=== PATIENT | male | born 1945 | race Caucasian/White ===

== ENCOUNTER 2019-03-06 10:29 | Emergency (ER) | payer MEDICARE, OTHER ==
[2019-03-06 11:21] LABS: ADD MAN DIFF? NO
[2019-03-06 11:28] LABS: HEMOGLOBIN 13.3 g/dl (14.0-18.0); RED BLOOD COUNT 4.92 10^6/ul (4.70-6.10)
[2019-03-06 11:28] LABS: WHITE BLOOD COUNT 5.5 10^3/ul (4.8-10.8)
[2019-03-06 11:29] LABS: BASOPHILS % 0.7 % (0.0-2.0); EOSINOPHILS # 0.1 10^3/ul (0.0-0.5); EOSINOPHILS % 2.2 % (0.0-7.0); HEMATOCRIT 41.5 % (42.0-52.0); LYMPHOCYTES # 1.3 10^3/ul (0.8-2.9); LYMPHOCYTES % 23.2 % (15.0-51.0); MEAN CORPUSCULAR VOLUME 84.3 fl (82.0-101.0); MEAN PLATELET VOLUME 10.8 fl (7.4-10.4); MONOCYTE # 0.5 10^3/ul (0.3-0.9); MONOCYTES % 8.8 % (0.0-11.0); NEUTROPHIL # 3.5 10^3/ul (1.6-7.5); NEUTROPHILS % 64.7 % (39.0-77.0); PLATELET COUNT 125 10^3/UL (140-415); RED CELL DISTRIBUTION WIDTH 14.5 % (11.5-14.5)
[2019-03-06 11:30] LABS: ALANINE AMINOTRANSFERASE 74 IU/L (13-69); ALBUMIN/GLOBULIN RATIO 1.21; ALKALINE PHOSPHATASE 126 IU/L (42-121); ANION GAP 10 (5-13); ASPARTATE AMINO TRANSFERASE 77 IU/L (15-46); BLOOD UREA NITROGEN 19 mg/dl (7-20); CALCIUM 9.1 mg/dl (8.4-10.2); CARBON DIOXIDE 28 mmol/L (21-31); CHLORIDE 100 mmol/L (97-110); CREATININE 1.13 mg/dl (0.61-1.24); GLUCOSE 125 mg/dl (70-220); POTASSIUM 4.6 mmol/L (3.5-5.1); SODIUM 138 mmol/L (135-144); TOTAL PROTEIN 7.3 g/dl (6.1-8.1)
[2019-03-06 11:41] LABS: TROPONIN-I < 0.012 ng/ml (0.000-0.120)
[2019-03-06 11:44] LABS: INR 1.02; PROTIME 13.5 Sec (11.9-14.9); PT RATIO 1.1
[2019-03-06 11:45] LABS: PARTIAL THROMBOPLASTIN TIME 27.8 Sec (23.0-35.0)
[2019-03-06] MEDS: SOD CHLORIDE 0.9% 1,000 ML IV (11:45)
[2019-03-06] MEDS: KETOROLAC 30 MG INJ IV (11:45)
[2019-03-06 11:57] LABS: ADD UMIC NO; UR ASCORBIC ACID NEGATIVE (NEGATIVE); UR BILIRUBIN (Dip) NEGATIVE (NEGATIVE); UR BLOOD (Dip) NEGATIVE (NEGATIVE); UR CLARITY CLEAR (CLEAR); UR COLOR STRAW (YELLOW); UR GLUCOSE (Dip) NEGATIVE (NEGATIVE); UR KETONES (Dip) NEGATIVE (NEGATIVE); UR LEUKOCYTE ESTERASE (Dip) NEGATIVE Leu/ul (NEGATIVE); UR NITRITE (Dip) NEGATIVE (NEGATIVE); UR SPECIFIC GRAVITY (Dip) 1.006 (1.003-1.030); UR TOTAL PROTEIN (Dip) NEGATIVE (NEGATIVE); UR UROBILINOGEN (Dip) NEGATIVE (NEGATIVE)
[2019-03-06] MEDS: CYCLOBENZAPRINE 10 MG TAB PO (13:59)
== END 2019-03-06 15:00 | disposition home or self-care (01) ==
LOC: E/R 10:29
DX: G25.81 Restless legs syndrome (principal); I25.2 Old myocardial infarction; Z95.0 Presence of cardiac pacemaker
CPT/HCPCS: 36415; 80053; 81003; 84484; 85025; 85610; 85730; 87086; 93005; 93970; 96374; 99285-25